=== PATIENT | female | born 1960 | race Caucasian/White ===

== ENCOUNTER → 2017-01-28 | Outpatient (CLI) | payer OTHER ==
[2016-08-16 19:50] VITALS: BP 134/69
[~2017-01-28] MED LIST: LAMOTRIGINE; STATIN; SYMBACORT
--- NOTE | 2017-01-28 13:09 | RAD ---
CT chest without IV contrast History: Follow-up lung nodule, history of smoking. Comparison: CT chest 10/14/2016. Technique: Helical CT of the chest was performed without intravenous contrast. Axial, sagittal, and coronal reconstructions were obtained. One or more of the following individualized dose reduction techniques were utilized for the study: Automated exposure control Adjustment of mA and/or kV according to patient's size Use of iterative reconstruction technique. Findings: Visualized thyroid is symmetric. Trachea and mainstem bronchi appear patent. No mediastinal lymphadenopathy is seen. Mild coronary artery calcifications are present. Heart and pericardium are unremarkable. Mild centrilobular emphysematous changes are again seen. No pneumothorax or pleural effusion is identified. Previously identified right upper lobe pulmonary nodule has resolved. No pulmonary masses or significant pulmonary nodules are identified. Cystic lesion adjacent to the right pericardium appears decreased in size from previous study, compatible with decrease in size of pericardial cyst. Small low-density lesions involving the liver appear similar to previous study. Impression: 1. Mild emphysema. 2. Interval resolution of previously identified right upper lobe pulmonary nodule. No pulmonary masses or significant pulmonary nodules are seen.
== END | disposition home or self-care (01) ==
LOC: CT 12:01
PROVIDERS: ATTEND Internal Medicine Pulmonary Disease
DX: J43.9 Emphysema, unspecified (principal)
CPT/HCPCS: 71250